=== PATIENT | female | born 1975 | race Caucasian/White ===

== ENCOUNTER 2016-03-05 17:27 | Emergency (ER) | payer OTHER ==
[~2016-03-05] VITALS: Ht 157.5 cm; Wt 81.7 kg
[~2016-03-05 17:27] MED LIST: HYDROCODONE-AP1 EAC6 PO; PROAIR RESPICL90 MCG IH; PROVENTIL; TESSALON PERLE100 M1 PO; TIROSINT100 MCG; ZOCOR 20 MG TAB20 M1; ZOLOFT100 MG; ZPAK PO
[2016-03-05 17:49] LABS: URINE BILIRUBIN NEGATIVE (Negative); URINE BLOOD NEGATIVE (Negative); URINE COLOR YELLOW; URINE GLUCOSE-RANDOM* NEGATIVE (Negative); URINE KETONES NEGATIVE (Negative); URINE LEUKOCYTES-REFLEX NEGATIVE (Negative); URINE PROTEIN (DIPSTICK) NEGATIVE (Negative); URINE SPECIFIC GRAVITY 1.025 (1.003-1.035); URINE UROBILINOGEN 0.2 E.U./dl (0.2-1.0)
[2016-03-05] MEDS ORDERED: LEVOTHYROXINE0.05 MG PO (17:55)
[2016-03-05] MEDS ORDERED: LISINOPRIL10 MG PO (17:55)
[2016-03-05 18:04] LABS: ABSOLUTE NEUTROPHILS 7.1 thou/uL (1.4-8.2); BASOPHILS 0.5 % (0.0-2.0); EOSINOPHILS 1.8 % (0.0-3.0); HEMATOCRIT 39.3 % (37.0-47.0); HEMOGLOBIN 13.1 gm/dL (12.0-15.0); LYMPHOCYTES 22.6 % (24.0-44.0); MCH 28.7 pg (26.0-34.0); MCHC 33.4 % (28.0-37.0); MONOCYTES 7.9 % (1.0-8.0); PLATELET COUNT 268 thou/uL (150-400); POLYS 67.2 % (36.0-66.0); RBC 4.57 mil/uL (4.20-5.00); RDW 13.3 % (10.5-14.5); WBC 10.6 thou/uL (4.0-11.0)
[2016-03-05 18:05] LABS: MANUAL DIFF NO
[2016-03-05 18:19] LABS: CALCIUM 9.2 mg/dL (8.5-10.1); CREATININE 0.7 mg/dL (0.6-1.3)
[2016-03-05 18:25] LABS: TOTAL BILIRUBIN 0.2 mg/dL (<0.1-1.0)
[2016-03-05 18:41] LABS: LARGE PLATELETS FEW
[2016-03-05] MEDS ORDERED: ONDANSETRON HCL4 M2 PO (19:20)
[2016-03-05 20:18] VITALS: BP 118/69
== END 2016-03-05 20:20 | disposition home or self-care (01) ==
LOC: ER 17:27
PROVIDERS: Physician Assistant
DX: R19.7 Diarrhea, unspecified (principal); R11.2 Nausea with vomiting, unspecified; J45.909 Unspecified asthma, uncomplicated; E78.00 Pure hypercholesterolemia, unspecified; E03.9 Hypothyroidism, unspecified; F41.9 Anxiety disorder, unspecified